=== PATIENT | female | born 1985 | race Caucasian/White ===

== ENCOUNTER 2017-07-25 16:54 | Emergency (ER) | payer OTHER ==
[~2017-07-25] VITALS: Ht 177.8 cm; Wt 136.1 kg
--- NOTE | ~2017-07-25 | EKG ---
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: [facility] : 1985 Requested By: Saadia Orozco Order Number: [id number] MD: Scooby Pierson Measurements Intervals [place] Rate: 94 P: 13 AK: 138 QRS: 52 QRSD: 101 T: 21 QT: 331 QTc: 414 Interpretive Statements Sinus rhythm No significant abnormality Compared to ECG 02/11/2011 13:02:04 No significant change was found Electronically Signed On 07-26-2017 15:50:52 ACCOUNT ANALYST by Scooby Pierson [email or web address] <ELECTRONICALLY SIGNED> By: Scooby Pierson MD, [facility] 07/26/17 1550 1700 1700 Scooby Pierson MD, FACC /EPI
[~2017-07-25 16:54] MED LIST: CIPROFLOXACIN500 M1 PO; GENERESS FE CH1 EACH PO; GLUCOPHAGE500 MG PO; IBUPROFEN 600600 M1 PO; NAPROSYN500 MG PO; NOHOMEMEDICATIONS; NORCO 5-325 TA1 EACH PO; PHENERGAN 25 MG25 M1 PO; SPIRONOLACTONE25 M1 PO; TRANDATE 200 M200 MG PO; VICODIN 5-5001 EACH PO; VITCB500GO; ZOFRAN4 MG PO
[2017-07-25 17:34] LABS: HEMATOCRIT 41.7 % (37.0-47.0); HEMOGLOBIN 14.5 gm/dL (12.0-15.0); MCHC 34.8 g/dL (28.0-37.0); MCV 83.3 fL (80.0-100.0); RBC 5.01 mil/uL (4.20-5.00); RDW 13.4 % (10.5-14.5); WBC 4.8 thou/uL (4.0-11.0)
[2017-07-25 17:47] LABS: ANION GAP 9 mmol/L (7-16); BUN 8 mg/dL (7-18); CALCIUM 8.4 mg/dL (8.5-10.1); CHLORIDE 101 mmol/L (98-107); CO2 26 mmol/L (21-32); CREATININE 0.8 mg/dL (0.6-1.0); GLUCOSE 105 mg/dL (74-106); POTASSIUM 3.9 mmol/L (3.5-5.1); SODIUM 136 mmol/L (136-145)
[2017-07-25 17:56] LABS: TROPONIN-I < 0.04 ng/mL (<0.06)
[2017-07-25] MEDS ORDERED: PROMETHAZINE/C118 ML PO (18:20)
[2017-07-25] MEDS ORDERED: PREDNISONE 20 M20 MG PO (18:20)
[2017-07-25] MEDS ORDERED: VALTREX 500 MG500 MG PO (18:20)
[2017-07-25] MEDS ORDERED: MECLIZINE HCL25 MG PO (18:20)
== END 2017-07-25 18:38 | disposition home or self-care (01) ==
LOC: ER 16:54
PROVIDERS: Physician Assistant
DX: B34.9 Viral infection, unspecified (principal); R42 Dizziness and giddiness; I10 Essential (primary) hypertension

== ENCOUNTER 2017-12-22 16:23 | Emergency (ER) | payer OTHER ==
[~2017-12-22] VITALS: Ht 170.2 cm; Wt 158.8 kg
[~2017-12-22 16:23] MED LIST changes: +MECLIZINE HCL25 MG PO; +PREDNISONE 20 M20 MG PO; +PROMETHAZINE/C118 ML PO; +VALTREX 500 MG500 MG PO
[2017-12-22 16:26] VITALS: BP 135/59
[2017-12-22] MEDS ORDERED: NORCO 5-325 TA1 EACH PO (17:06)
== END 2017-12-22 17:20 | disposition home or self-care (01) ==
LOC: ER 16:23
DX: S09.90XA Unspecified injury of head, initial encounter (principal); S16.1XXA Strain of muscle, fascia and tendon at neck level, initial encounter; Z90.49 Acquired absence of other specified parts of digestive tract; Z90.710 Acquired absence of both cervix and uterus; Z88.0 Allergy status to penicillin; Z88.2 Allergy status to sulfonamides; V89.2XXA Person injured in unspecified motor-vehicle accident, traffic, initial encounter; Y93.89 Activity, other specified; Y92.89 Other specified places as the place of occurrence of the external cause; Y99.8 Other external cause status

== ENCOUNTER 2019-08-13 10:10 | Emergency (ER) | payer OTHER ==
[~2019-08-13] VITALS: Ht 177.8 cm; Wt 131.5 kg
[2019-08-13 10:16] VITALS: BP 134/90
[2019-08-13] MEDS ORDERED: TAMIFLU75 MG PO (11:46)
[2019-08-13] MEDS ORDERED: PROMETH-CODEIN 65 ML PO (11:46)
== END 2019-08-13 12:14 | disposition home or self-care (01) ==
LOC: ER 10:10
DX: M79.10 Myalgia, unspecified site (principal); R05 Cough; R50.9 Fever, unspecified; R51 Headache; N80.9 Endometriosis, unspecified; Z90.710 Acquired absence of both cervix and uterus; Z90.49 Acquired absence of other specified parts of digestive tract; Z88.0 Allergy status to penicillin; Z88.2 Allergy status to sulfonamides

== ENCOUNTER 2019-12-23 08:33 | Emergency (ER) | payer OTHER ==
[~2019-12-23] VITALS: Ht 177.8 cm; Wt 145.2 kg
[~2019-12-23 08:33] MED LIST changes: +PROMETH-CODEIN 65 ML PO; +TAMIFLU75 MG PO
[2019-12-23] MEDS ORDERED: PROMETH-CODEIN 65 ML PO (11:11)
[2019-12-23] MEDS ORDERED: MUCINEX DM ER1 EACH PO (11:15)
[2019-12-23 11:20] VITALS: BP 123/60
== END 2019-12-23 11:20 | disposition home or self-care (01) ==
LOC: ER 08:33
DX: J06.9 Acute upper respiratory infection, unspecified (principal); Z20.828 Contact with and (suspected) exposure to other viral communicable diseases; R19.7 Diarrhea, unspecified; Z90.711 Acquired absence of uterus with remaining cervical stump; Z90.89 Acquired absence of other organs; Z90.49 Acquired absence of other specified parts of digestive tract; Z88.0 Allergy status to penicillin; Z88.2 Allergy status to sulfonamides

== ENCOUNTER 2021-06-22 10:20 | Emergency (ER) | payer OTHER ==
[~2021-06-22] VITALS: Ht 177.8 cm; Wt 149.7 kg
[~2021-06-22 10:20] MED LIST changes: +MUCINEX DM ER1 EACH PO
[2021-06-22 10:42] VITALS: BP 151/99
[2021-06-22 11:08] LABS: URINE BILIRUBIN NEGATIVE (Negative); URINE BLOOD NEGATIVE (Negative); URINE CLARITY CLEAR; URINE COLOR YELLOW; URINE GLUCOSE-RANDOM* NEGATIVE (Negative); URINE KETONES NEGATIVE (Negative); URINE LEUKOCYTES-REFLEX NEGATIVE (Negative); URINE NITRITE-REFLEX NEGATIVE (Negative); URINE PROTEIN (DIPSTICK) NEGATIVE (Negative); URINE SPECIFIC GRAVITY 1.015 (1.005-1.035); URINE UROBILINOGEN 0.2 E.U./dl (0.2-1.0)
--- NOTE | 2021-06-23 07:17 | EKG ---
[address] [address] ELECTROCARDIOGRAM REPORT Name: MIRANDA ROCK [facility]: [facility] [id number] Admission: 06/22/21 Attend Phys: Discharge: 06/22/21 Date of : [birth year] Report #: [id number] 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: [id number] : 1985 Requested By: Chato Hunter Order Number: [id number] MD: Fredis Cuenca Measurements Intervals [place] Rate: 73 P: 6 WI: 154 QRS: 31 QRSD: 104 T: 36 QT: 386 QTc: 426 Interpretive Statements Sinus rhythm Compared to ECG 07/25/2017 17:00:43 No significant changes Electronically Signed On 06-23-2021 7:17:34 TRUCK TRAILER FINAL INSPECTOR by Fredis Cuenca [email or web address] <ELECTRONICALLY SIGNED> By: Fredis Cuenca MD, [facility] 06/23/21 0717 1059 1059 Fredis Cuenca MD, FACC /EPI
== END 2021-06-22 12:57 | disposition home or self-care (01) ==
LOC: ER 10:20
PROVIDERS: Student in an Organized Health Care Education/Training Program
DX: U07.1 COVID-19 (principal); J06.9 Acute upper respiratory infection, unspecified; J04.0 Acute laryngitis; Z90.710 Acquired absence of both cervix and uterus; Z90.89 Acquired absence of other organs; Z90.49 Acquired absence of other specified parts of digestive tract; Z79.899 Other long term (current) drug therapy; Z88.0 Allergy status to penicillin; Z88.2 Allergy status to sulfonamides